=== PATIENT | female | born 1965 | race Caucasian/White ===

== ENCOUNTER → 2017-03-18 | Outpatient (REF) | payer OTHER | LOC: M SFHCWAGY 14:35 | PROVIDERS: ATTEND Nurse Practitioner Family | DX: Z12.4 Encounter for screening for malignant neoplasm of cervix (principal) ==

== ENCOUNTER → 2017-03-18 | Outpatient (CLI) | payer BC ==
--- NOTE | 2017-03-18 15:33 | REPMRS ---
Patient History The patient states she had a clinical breast exam in 03/2017. Patient is nulliparous. No known family history of cancer. Taking hormonal contraceptives for 29 years. Digital Woman Screen Mammo: March 18, 2017 - Exam #: [id number] Bilateral CC and MLO view(s) were taken. Technologist: Caroline Tang, Technologist Prior study comparison: March 10, 2016, digital woman screen mammo performed at [facility]. February 19, 2015, digital woman screen mammo performed at [facility]. February 27, 2014, digital woman screen mammo performed at [facility]. FINDINGS: There are scattered fibroglandular densities. There has been no change in the appearance of the mammogram from the prior studies. There is a mild amount of scattered fibroglandular density which is fairly symmetric. There is no interval development of dominant mass, architectural distortion, or clustered microcalcification suggestive of malignancy. ASSESSMENT: BI-RADS/ACR category 1 mammogram. Negative. Recommendation Routine screening mammogram in 1 year (for women over age 40). This mammogram was interpreted with the aid of an FDA-approved computer-aided dectection system. Electronically Signed By: Zak Lambert MD 03/18/17 [id number]
== END ==
LOC: M WHC 13:30
PROVIDERS: ATTEND Nurse Practitioner Family
DX: Z12.31 Encounter for screening mammogram for malignant neoplasm of breast (principal)

== ENCOUNTER → 2017-06-15 | Outpatient (CLI) | payer BC ==
--- NOTE | 2017-06-15 16:10 | REP ---
Pelvic sonography: History: Uterine leiomyoma. Comparison study March 27, 2014 showed an enlarged leiomyomatous uterus. Findings: Transvaginal and Transabdominal scanning is performed. Uterus remains enlarged measuring 13.6 x 9.0 x 10.0 cm. Endometrial echo could not be identified. Multiple fibroids are seen ranging in size from 2 to 5 cm distorting the uterine contour and the endometrium. Uterus appears to have enlarged since the prior study. No free fluid is seen. Neither ovary could be directly visualized. No adnexal mass or cystic structure is seen. Impression: Enlarged fibroid uterus. Uterine dimensions are larger than on the prior study.
== END ==
LOC: M WHC 13:59
PROVIDERS: ATTEND Nurse Practitioner Family
DX: D25.9 Leiomyoma of uterus, unspecified (principal); N92.6 Irregular menstruation, unspecified

== ENCOUNTER → 2017-08-12 | Outpatient (CLI) | payer BC, OTHER ==
[2017-08-12 10:38] LABS: INR 0.93; PROTHROMBIN TIME 12.5 SECONDS (12.4-14.5)
[2017-08-12 10:41] LABS: HEMATOCRIT 45.1 % (36.0-47.0); HEMOGLOBIN 14.8 g/dl (12.0-16.0); MEAN CORPUSCULAR HEMOGLOBIN 30.5 pg (27.0-33.0); MEAN CORPUSCULAR HGB CONC 32.8 g/dl (32.0-36.5); MEAN CORPUSCULAR VOLUME 92.8 fl (80.0-96.0); PLATELET COUNT, AUTOMATED 383 10^3/uL (150-450); RED BLOOD COUNT 4.86 10^6/uL (4.00-5.40); WHITE BLOOD COUNT 7.2 10^3/uL (4.0-10.0)
[2017-08-12 11:06] LABS: ESTRADIOL < 19.0 PG/ML; LUTEINIZING HORMONE 7.4 mIU/mL; TOTAL 25(OH) VITAMIN D 13.8 NG/ML (30.0-100.0)
[2017-08-12 11:07] LABS: ESTIMATED AVERAGE GLUCOSE 120 MG/DL (60-110); FOLLICLE STIMULATING HORMONE 30.1 mIU/mL; HEMOGLOBIN A1c 5.8 %
[2017-08-12 11:09] LABS: ALBUMIN 4.1 GM/DL (3.2-5.2); ALBUMIN/GLOBULIN RATIO 1.14 (1.00-1.93); ALKALINE PHOSPHATASE 69 U/L (45-117); ALT/SGPT 26 U/L (12-78); ANION GAP 6 MEQ/L (8-16); AST/SGOT 16 U/L (7-37); BILIRUBIN,TOTAL 0.4 MG/DL (0.2-1.0); BLOOD UREA NITROGEN 13 MG/DL (7-18); CALCIUM LEVEL 9.1 MG/DL (8.5-10.1); CARBON DIOXIDE LEVEL 29 MEQ/L (21-32); CHLORIDE LEVEL 106 MEQ/L (98-107); CHOLESTEROL LEVEL 304 MG/DL (<200); CREATININE FOR GFR 0.73 MG/DL (0.55-1.02); GLOMERULAR FILTRATION RATE > 60.0 (>51); GLUCOSE, FASTING 90 MG/DL (70-100); HDL CHOLESTEROL 80 MG/DL (>40); LDL CHOLESTEROL 181.6 MG/DL (<100); NON-HDL-C 224 MG/DL; POTASSIUM SERUM 4.4 MEQ/L (3.5-5.1); SODIUM LEVEL 141 MEQ/L (136-145); TOTAL PROTEIN 7.7 GM/DL (6.4-8.2); TRIGLYCERIDES LEVEL 212 MG/DL (<150)
== END ==
LOC: M LAB 09:42
DX: I10 Essential (primary) hypertension (principal); R53.83 Other fatigue; M25.78 Osteophyte, vertebrae; M50.80 Other cervical disc disorders, unspecified cervical region
CPT/HCPCS: 71046

== ENCOUNTER 2017-08-31 06:09 | Day surgery (SDC) | payer BC, OTHER ==
[2017-08-31] MEDS ORDERED: LIDOCAINE 1% MDV 20ML VIAL SQ (06:15)
[2017-08-31] MEDS ORDERED: ROCURONIUM BROMIDE 50 MG/5 ML VIAL As Ordered ×2 (06:44→08:49)
[2017-08-31] MEDS ORDERED: GLYCOPYRROLATE INJ 0.2 MG/ML 2 ML VIAL As Ordered (06:44)
[2017-08-31] MEDS ORDERED: PROPOFOL 200 MG/20 ML VIAL As Ordered (06:44)
[2017-08-31] MEDS ORDERED: ONDANSETRON 4MG/2ML VIAL (J2405) As Ordered (06:44)
[2017-08-31] MEDS ORDERED: NEOSTIGMINE 10 MG/10 ML VIAL (J2710) As Ordered (06:44)
[2017-08-31] MEDS ORDERED: KETOROLAC 60 MG/2 ML VIAL (J1885) As Ordered (06:44)
[2017-08-31] MEDS ORDERED: LIDOCAINE 2% INJ 100 MG/5 ML SDV (FOR ANES.) As Ordered (06:44)
[2017-08-31] MEDS ORDERED: dexameTHASONE 4 MG/ML 1ML VIAL (J1100) As Ordered (06:45)
[2017-08-31] MEDS ORDERED: LIDOCAINE 2% JELLY 30 ML As Ordered (06:45)
[2017-08-31] MEDS ORDERED: fentaNYL 100 MCG/2 ML INJECTION (J3010) As Ordered (06:46)
[2017-08-31] MEDS ORDERED: MIDAZOLAM INJ 2 MG/2 ML VIAL (J2250) As Ordered (06:46)
[2017-08-31] MEDS ORDERED: HYDROmorphone HCL 2 MG/ML 1ML VIAL (J1170) As Ordered (06:46)
[2017-08-31] MEDS: LR 1,000 ML IV ×2 (06:56→12:24)
[2017-08-31 07:35] LABS: CONTROL LINE UCG INT CTR LINE PRESENT; URINE PREG TEST NEGATIVE (NEGATIVE)
[2017-08-31] MEDS ORDERED: PHENYLephrine HCL 500 MCG/5 ML (100MCG/ML) SYRINGE (J2370) As Ordered (08:13)
[2017-08-31] MEDS: BUPIVACAINE HCL 0.25% 30 ML VIAL As Ordered (08:20)
[2017-08-31] MEDS: METHYLENE BLUE 0.5% (5MG/ML) 10 ML AMP (PROVAYBLUE)(Q9968 PER 1MG) As Ordered (10:00)
[2017-08-31] MEDS ORDERED: LR 1,000 ML IV (11:15)
[2017-08-31] MEDS ORDERED: ONDANSETRON 4MG/2ML VIAL (J2405) IV (11:15)
[2017-08-31] MEDS ORDERED: METOCLOPRAMIDE INJ 10MG/2ML VIAL (J2765) IV (11:15)
[2017-08-31] MEDS ORDERED: fentaNYL 100 MCG/2 ML INJECTION (J3010) IV (11:15)
[2017-08-31] MEDS ORDERED: PERCOCET 5MG/325MG TAB PO ×3 (11:15)
[2017-08-31] MEDS ORDERED: MORPHINE 4 MG/ML 1ML VIAL (J2270) IV (11:15)
[2017-08-31] MEDS ORDERED: MEPERIDINE INJ 25 MG/ML VIAL (J2175) IV (11:15)
[2017-08-31] MEDS: ONDANSETRON 4MG/2ML VIAL (J2405) IV ×2 (12:55→17:21)
[2017-08-31] MEDS: DOCUSATE SODIUM 100 MG CAP PO (15:21)
[2017-08-31] MEDS ORDERED: KETOROLAC 30 MG/ML VIAL (J1885) IV (16:00)
== END 2017-08-31 18:25 | disposition home or self-care (01) ==
LOC: M SDC 06:09 → M PED 12:09 → M SDC 18:25
DX: D25.2 Subserosal leiomyoma of uterus (principal); I10 Essential (primary) hypertension; Z79.899 Other long term (current) drug therapy
CPT/HCPCS: 58572

== ENCOUNTER → 2018-03-22 | Outpatient (CLI) | payer BC | LOC: M WHC 13:35 | DX: Z12.31 Encounter for screening mammogram for malignant neoplasm of breast (principal) | CPT/HCPCS: 77067 ==

== ENCOUNTER → 2018-03-29 | Outpatient (CLI) | payer OTHER, BC ==
[2018-03-31 10:37] LABS: FOLLICLE STIMULATING HORMONE 22.4 mIU/mL
== END ==
LOC: M WUC 13:06
DX: N95.1 Menopausal and female climacteric states (principal)
CPT/HCPCS: 83001

== ENCOUNTER → 2018-11-20 | Outpatient (REF) | payer OTHER ==
[~2018-11-20] MED LIST: METO25TA4 PO; MICR1TAB18 PO; OXYC1TAB23 PO
[2018-11-20 19:05] LABS: APPEARANCE, URINE CLEAR (CLEAR); BACTERIA, URINE AUTO NEGATIVE (NEGATIVE); BILIRUBIN, URINE AUTO NEGATIVE (NEGATIVE); BLOOD, URINE BLOOD 1+ (NEGATIVE); COLOR, URINE YELLOW (YELLOW); GLUCOSE, URINE (UA) AUTO NEGATIVE (NEGATIVE); KETONE, URINE AUTO NEGATIVE (NEGATIVE); LEUKOCYTE ESTERASE, URINE AUTO TRACE (NEGATIVE); NITRITE, URINE AUTO NEGATIVE (NEGATIVE); PROTEIN, URINE AUTO NEGATIVE (NEGATIVE); RBC, URINE AUTO 4 /HPF (0-3); SPECIFIC GRAVITY URINE AUTO 1.014 (1.002-1.035); SQUAMOUS EPITHELIAL CELL UR AU 1 /HPF (0-6); UROBILINOGEN, URINE AUTO 0.2 mg/dL (0.0-2.0); WBC, URINE AUTO 4 /HPF (0-3)
== END ==
LOC: M LAB REF 17:04
PROVIDERS: ATTEND Physician Assistant Medical
DX: N39.0 Urinary tract infection, site not specified (principal)

== ENCOUNTER → 2019-01-09 | Outpatient (CLI) | payer BC, OTHER ==
--- NOTE | 2019-01-11 21:41 | SLEEPCENT ---
DATE OF PROCEDURE: 01/09/2019 ORDERED BY: GINNY Coyle Nocturnal polysomnography was performed for evaluation of sleep physiology in this patient with a history of excessive somnolence and nonrestorative sleep who has comorbidities of hypertension. 7 hours and 45 minutes of data were reviewed. There are 330 minutes of sleep identified. Sleep latency was prolonged at 82 minutes. REM latency was mildly prolonged at 102 minutes. Sleep architecture was fairly well-preserved with three REM cycles. Overall sleep efficiency 71.7%. The electrocardiogram showed a sinus rhythm with an average heart rate of 65 beats per minute. EEG showed reasonably normal waveforms for awake and sleep. There were 57 respiratory events identified of 10 seconds in duration or greater for an apnea-hypopnea index of 10.4. The events were primarily obstructive, not exclusive to sleep stage nor body posture. Arousals from respiratory events occurred 3.3 times per hour and oxygen desaturations were seen into the low 80s. There was some limb activity seen, but arousal index from limbs was 4.9. Remaining measures of sleep physiology were normal. IMPRESSION Obstructive sleep apnea syndrome (G47.33). Apnea-hypopnea index 10.4. RECOMMENDATIONS The patient should be encouraged to return to the sleep disorder center for pressure therapy. In the interim alcohol and sedative avoidance should be practiced and caution exercised during the operation of motor vehicles.
== END ==
LOC: M SLEEP 19:39
PROVIDERS: ATTEND Nurse Practitioner Family
DX: R06.83 Snoring (principal)

== ENCOUNTER → 2019-09-12 | Outpatient (CLI) | payer BC, OTHER ==
--- NOTE | 2019-09-12 16:01 | REPMRS ---
Patient History The patient states she had a clinical breast exam in August 2019.No known family history of cancer. Taking hormonal contraceptives for 30 years. Digital Woman Screen Mammo: September 12, 2019 - Exam #: [id number] Bilateral CC and MLO view(s) were taken. Technologist: Navya Trivedi, Technologist Prior study comparison: March 22, 2018, bilateral digital woman screen mammo performed at [facility]. March 18, 2017, digital woman screen mammo performed at [facility]. March 10, 2016, digital woman screen mammo performed at [facility]. FINDINGS: There are scattered fibroglandular densities. There has been no change in the appearance of the mammogram from the prior studies. There is a mild amount of scattered fibroglandular density which is fairly symmetric. There is no interval development of dominant mass, architectural distortion, or grouped microcalcification suggestive of malignancy. 3-D tomosynthesis shows no additional findings. Assessment: BI-RADS/ACR category 1 mammogram. Negative Mammogram. Recommendation Routine screening mammogram of both breasts in 1 year (for women over age 40). This patient's Lifetime Breast Cancer Risk is estimated at 13.1 %. This mammogram was interpreted with the aid of an FDA-approved computer-aided dectection system. Electronically Signed By: Zak Lambert MD 09/12/19 [id number]
== END ==
LOC: M WHC 14:27
PROVIDERS: ATTEND Nurse Practitioner Family
DX: Z12.31 Encounter for screening mammogram for malignant neoplasm of breast (principal)

== ENCOUNTER → 2020-06-21 | Outpatient (CLI) | payer BC, OTHER | LOC: M LABSMTC 10:06 | PROVIDERS: ATTEND Orthopaedic Surgery | DX: Z01.812 Encounter for preprocedural laboratory examination (principal); Z20.828 Contact with and (suspected) exposure to other viral communicable diseases ==

== ENCOUNTER → 2020-09-17 | Outpatient (CLI) | payer BC ==
--- NOTE | 2020-09-17 16:42 | REPMRS ---
Patient History The patient states she had a clinical breast exam in 09/2020. Patient is nulliparous. No known family history of cancer. Took hormonal contraceptives for 30 years. Taking estrogen for 1 year. 3D TOMOSYNTHESIS WAS PERFORMED. The Isabela Dorman lifetime risk for breast cancer is 13.1%. Volpara breast density b. Digital Woman Screen Mammo: September 17, 2020 - Exam #: [id number] Bilateral CC and MLO view(s) were taken. Technologist: Caroline Tang, Technologist Prior study comparison: September 12, 2019, bilateral digital woman screen mammo performed at [facility]. March 22, 2018, bilateral digital woman screen mammo performed at [facility]. FINDINGS: There are scattered fibroglandular densities. There has been no change in the appearance of the mammogram from the prior studies. There is a mild amount of residual fibroglandular tissue which is fairly symmetric. There is no interval development of dominant mass, architectural distortion, or clustered microcalcification suggestive of malignancy. Assessment: BI-RADS/ACR category 1 mammogram. Negative Mammogram. Recommendation Routine screening mammogram in 1 year (for women over age 40). This mammogram was interpreted with the aid of an FDA-approved computer-aided dectection system. Electronically Signed By: Sridhar Wei MD 09/17/20 [id number]
== END ==
LOC: M WHC 15:18
PROVIDERS: ATTEND Nurse Practitioner Family
DX: Z12.31 Encounter for screening mammogram for malignant neoplasm of breast (principal); Z92.0 Personal history of contraception; Z92.23 Personal history of estrogen therapy

== ENCOUNTER → 2021-11-13 | Outpatient (CLI) | payer BC, OTHER | LOC: M WHC 08:04 | PROVIDERS: ATTEND Advanced Practice Midwife | DX: Z12.31 Encounter for screening mammogram for malignant neoplasm of breast (principal) ==

== ENCOUNTER 2022-12-22 10:05 | Day surgery (SDC) | payer BC, OTHER ==
[~2022-12-22] VITALS: Ht 165.1 cm; Wt 99.7 kg
[~2022-12-22 10:05] MED LIST changes: +ERGO500029 PO; +METF500T13 PO; -MICR1TAB18 PO; +NORE1TAB94 PO; +NS 1,000 ML IV ONE; +OMEP-173 PO; +SIMV20TA22 PO
[2022-12-22] MEDS ORDERED: propofoL 200 MG/20 ML VIAL As Ordered ONE (10:53)
[2022-12-22] MEDS ORDERED: fentaNYL 100 MCG/2 ML INJECTION As Ordered ONE (10:54)
[2022-12-22] MEDS ORDERED: ePHEDrine SULFATE 25 MG/5 ML(5MG/ML) SYRINGE As Ordered ONE (11:52)
[2022-12-22 12:21] VITALS: BP 133/62; O2SAT 98
== END 2022-12-22 12:23 | disposition home or self-care (01) ==
LOC: M OPP 10:05
PROVIDERS: ATTEND Internal Medicine Gastroenterology
DX: Z12.11 Encounter for screening for malignant neoplasm of colon (principal); K64.0 First degree hemorrhoids; R12 Heartburn; K22.70 Barrett's esophagus without dysplasia; K22.89 Other specified disease of esophagus; K44.9 Diaphragmatic hernia without obstruction or gangrene; K31.7 Polyp of stomach and duodenum
CPT/HCPCS: 43239; 45378; 88305; J3010

== ENCOUNTER → 2023-09-30 | Outpatient (CLI) | payer BC ==
[~2023-09-30] MED LIST changes: -NS 1,000 ML IV ONE
== END ==
LOC: M WHC 13:54
PROVIDERS: ATTEND Advanced Practice Midwife
DX: Z12.31 Encounter for screening mammogram for malignant neoplasm of breast (principal)